=== PATIENT | female | born 1960 | race Caucasian/White ===

== ENCOUNTER 2018-05-17 17:58 | Emergency (ER) | payer OTHER ==
[2018-05-17] MEDS ORDERED: Ibuprofen 200 MG Tab PO ONE (18:53)
--- NOTE | 2018-05-17 19:00 | EDM.PDOC ---
ED HPI GENERAL MEDICAL PROBLEM - General Chief Complaint: Upper Extremity Injury/Pain Stated Complaint: right wrist pain Time Seen by Provider: 05/17/18 18:12 Source of Information: Reports: Patient History Limitations: Reports: No Limitations - History of Present Illness INITIAL COMMENTS - FREE TEXT/NARRATIVE: Maria Del Rosario is a 58 yo female who presents to the ER via private vehicle with concerns of a fracture to her right wrist. She states she was helping her unload septic tanks and she ended up getting her elbow and wrist wedged between two of them. She states she immediately felt discomfort in her wrist and thinks it was hyperextended back. She has been applying ice to it. Onset: Today Location: Reports: Upper Extremity, Right Right Wrist Pain Score (Numeric/FACES): 9 - Related Data Allergies Allergy/AdvReac Type Severity Reaction Status Date / Time No Known Allergies Allergy Verified 05/17/18 17:59 Home Meds: Home Meds . [No Known Home Meds] 05/17/18 [History] Past Medical History - Past Surgical History GI Surgical History: Reports: Cholecystectomy Female Surgical History: Reports: Hysterectomy Social & Family History - Tobacco Use Smoking Status *Q: Never Smoker Review of Systems - Review of Systems Review Of Systems: ROS reveals no pertinent complaints other than HPI. ED EXAM, GENERAL - Physical Exam Exam: See Below Exam Limited By: No Limitations General Appearance: Alert, No Apparent Distress Ears: Normal External Exam, Normal Canal, Hearing Grossly Normal, Normal TMs Extremities: Arm Pain (right wrist pain, obvious deformity) Neurological: Alert, Oriented, Normal Cognition, No Motor/Sensory Deficits Psychiatric: Normal Affect, Normal Mood Skin Exam: Warm, Dry, Intact, Normal Color, No Rash ED TRAUMA EXTREMITY PROCEDURES - Splinting Right Upper Extremity Pre-Procedure NV Status: Normal Post-Procedure NV Status: Normal Splint Material: Fiberglass Splint Design: Sling, Other (long arm) Applied & Form Fitted By: Provider Provider Post-Splint Application NV Check: NV Status Normal, Good Position Complications: No Course - Vital Signs Last Recorded V/S: Last Vital Signs Temp 97.1 F 05/17/18 18:02 Pulse 63 05/17/18 18:02 Resp 20 05/17/18 18:02 BP 129/82 05/17/18 18:02 Pulse Ox 99 05/17/18 18:02 - Orders/Labs/Meds Orders: Active Orders 24 hr Category Date Time Status Wrist Comp Min 3V Rt [CR] Stat Exams 05/17/18 18:12 Taken Meds: Medications Discontinued Medications Generic Name Dose Route Start Last Admin Trade Name Dari PRN Reason Stop Dose Admin Ibuprofen 800 mg 05/17/18 18:53 Motrin PO 05/17/18 18:54 ONETIME ONE Departure - Departure Time of Disposition: 19:02 Disposition: Home, Self-Care 01 Clinical Impression: Fracture of radius Qualifiers: Encounter type: initial encounter Radius location: distal Fracture type: closed Fracture morphology: unspecified fracture morphology Laterality: right Qualified Code(s): S52.501A - Unspecified fracture of the lower end of right radius, initial encounter for closed fracture - Discharge Information Instructions: Cast or Splint Care, Adult, [id number], Wrist Fracture Treated With Immobilization, [id number], Radial Fracture Referrals: PCP,None [Primary Care Provider] - Additional Instructions: 1) Keep arm splint in place, recommend using sling to support weight of splint 2) Ibuprofen 400-800mg every 6 hours as needed for discomfort, may alternate with Tylenol if needed 1000mg 3) Will consult with orthopedics in am 4) If any questions or concerns may call nursing station at [phone] 5) Will call tomorrow with ortho recommendations. - Problem List & Annotations (1) Fracture of radius SNOMED Code(s): 52213906 Code(s): S52.90XA - UNSP FRACTURE OF UNSP FOREARM, INIT FOR CLOS FX Status : Acute Current Visit: Yes Qualifiers: Encounter type: initial encounter Radius location: distal Fracture type: closed Fracture morphology: unspecified fracture morphology Laterality: right Qualified Code(s): S52.501A - Unspecified fracture of the lower end of right radius, initial encounter for closed fracture - My Orders Last 24 Hours: My Active Orders 05/17/18 18:12 Wrist Comp Min 3V Rt [CR] Stat - Assessment/Plan Last 24 Hours: My Active Orders 05/17/18 18:12 Wrist Comp Min 3V Rt [CR] Stat Plan: X-rays confirmed distal radius fracture with impaction and displacement. Long arm splint applied. Will consult ortho in the morning to discuss if any further treatment is warranted. If not, will have Maria Del Rosario return in 10 days for cast placement. See additional instructions.
== END 2018-05-17 19:15 | disposition home or self-care (01) ==
LOC: CC.ED 17:58
DX: S52.501A Unspecified fracture of the lower end of right radius, initial encounter for closed fracture (principal); Z90.49 Acquired absence of other specified parts of digestive tract; Z90.710 Acquired absence of both cervix and uterus; X50.9XXA Other and unspecified overexertion or strenuous movements or postures, initial encounter
CPT/HCPCS: 29105; 73110; 99283; A9270